=== PATIENT | male | born 1965 | race Caucasian/White ===

== ENCOUNTER 2016-08-09 05:56 | Emergency (ER) | payer SELFPAY ==
[2016-08-09] MEDS ORDERED: ADENOSINE 3 MG/ML SOL IV ONE ×4 (06:07→06:11)
[2016-08-09] MEDS ORDERED: SODIUM CHLORIDE 0.9% 1000ML 1,000 ML IV NR (06:30)
[2016-08-09 07:28] VITALS: TEMP 98.1
[2016-08-09 08:34] VITALS: BP 107/79; PULSE 83; RESP 18; O2SAT 98
[2016-08-09] MEDS ORDERED: METOPROLOL TARTRATE 25 MG TAB PO ONE (08:40)
[2016-08-09] MEDS ORDERED: METOPROLOL TARTRATE 25 MG TAB ONE (08:43)
== END 2016-08-09 09:00 | disposition home or self-care (01) | DRG 310 ==
LOC: ED 05:56
DX: I47.1 Supraventricular tachycardia (principal)
CPT/HCPCS: 93005; 96365; 96374; 99284; 99285; J0153